=== PATIENT | male | born 1990 | race Caucasian/White ===

== ENCOUNTER 2016-04-22 17:52 | Emergency (ER) | payer BC ==
[2016-04-22 19:12] VITALS: BP 117/60
--- NOTE | 2016-04-22 19:47 | UC ---
Lower Extremity/Ankle HPI - HPI Summary HPI Summary: This is an otherwise healthy 25 yo male who presents with 1st toe pain. He was upset and kicked a box of text books. He has pain and swelling in the R 1st toe. Denies any additional symptoms. No associated injuries. - History of Current Complaint Chief Complaint: UCLowerExtremity Stated Complaint: TOE INJURY - Allergies/Home Medications Allergies/Adverse Reactions: Allergies Allergy/AdvReac Type Severity Reaction Status Date / Time No Known Allergies Allergy Verified 04/22/16 19:12 Home Medications: Home Medications NK [No Home Medications Reported] 04/22/16 [History Confirmed 04/22/16] PMH/Surg Hx/FS Hx/Imm Hx Previously Healthy: Yes Endocrine History Of: Denies: Diabetes, Thyroid Disease Cardiovascular History Of: Denies: Cardiac Disorders, Hypertension Respiratory History Of: Denies: COPD, Asthma GI/ History Of: Denies: Ulcer Other History Of: Negative For: Anticoagulant Therapy - Surgical History Surgical History: Yes Surgery Procedure, Year, and Place: Orthopedic surgery to hands. - Family History Known Family History: Positive: Cardiac Disease - Social History Alcohol Use: Rare Substance Use Type: None Smoking Status (MU): Never Smoked Tobacco Review of Systems Constitutional: Negative Skin: Negative Eyes: Negative ENT: Negative Respiratory: Negative Cardiovascular: Negative Gastrointestinal: Negative Genitourinary: Negative Motor: Negative Neurovascular: Negative Musculoskeletal: Arthralgia Neurological: Negative Psychological: Negative All Other Systems Reviewed And Are Negative: Yes Physical Exam Triage Information Reviewed: Yes Appearance: Well-Appearing Vital Signs: Initial Vital Signs Temp 98.6 F 04/22/16 19:04 Pulse 80 04/22/16 19:04 Resp 18 04/22/16 19:04 BP 117/60 04/22/16 19:04 Pulse Ox 100 04/22/16 19:04 Vital Signs Reviewed: Yes Musculoskeletal: Positive: ROM Intact, Edema @ - R 1st MTPJ, Other: - TTP over 1st MTPJ and prox 1st toe Skin: Positive: Other - mild ecchymosis Diagnostics - Laboratory Diagnostic Studies Completed/Ordered: XR foot - fracture lat prox 1st phalanx extending in to the articular space Re-Evaluation - Re-Evaluation First Eval Re-Evaluation Time: 20:15 Change: Unchanged Comment: Reviewed results of XR Lower Extremity Course/Dx - Course Course Of Treatment: This is an otherwise healthy 25 yo male who kicked a box of text books earlier today who injured his R 1st toe. Noted fracture of lateral edge of proximal 1st toe extending in the articular space. Recommend immobilization and followup with orthopedics. patient would like to be seen in the [facility] and will call sunday for an appointment - Differential Dx/Diagnosis Differential Diagnosis/HQI/PQRI: Fracture (Closed), Sprain Provider Diagnoses: Fracture prox 1st toe Discharge - Discharge Plan Condition: Stable Disposition: HOME Patient Education Materials: Toe Fracture (ED) Referrals: Yamile BOYER,Angela Galicia [[facility] [employer] [employer]] - Additional Instructions: Activity: As tolerated Instructions: 1. Stay in post operative shoe 2. Please follow up with orthopedics to ensure appropriate healing
--- NOTE | 2016-04-22 20:05 | RAD ---
Indication: RIGHT great toe pain following kicking injury. Comparison: None. Technique: AP, lateral, and oblique views RIGHT foot. REPORT AND IMPRESSION: Mildly comminuted and impacted intra-articular fracture at the lateral base of the first proximal phalanx. Negative for additional fracture. Normal articular alignment.
== END 2016-04-22 20:32 | disposition home or self-care (01) ==
LOC: UCEAST 17:52
DX: S92.411A Displaced fracture of proximal phalanx of right great toe, initial encounter for closed fracture (principal); W22.8XXA Striking against or struck by other objects, initial encounter; Y93.9 Activity, unspecified; Y92.9 Unspecified place or not applicable
CPT/HCPCS: 99212; G0463